=== PATIENT | male | born 1985 | race Caucasian/White ===

== ENCOUNTER 2018-06-07 14:15 | Observation (INO) | payer OTHER ==
[~2018-06-07] VITALS: Ht 162.6 cm; Wt 89.9 kg
[2018-06-07] VITALS (22 sets, daily range): BP systolic 109–180; BP diastolic 63–100; PULSE 14–118; RESP 4–19; Ht 162.6 cm; Wt 89.9 kg
[~2018-06-07 14:15] MED LIST: CEFAZOLIN 1 GM INJ ONE; DESFLURANE 15 MIN ONE; LIDOCAINE 2% (SDV) 5 ML INJ ONE; PROPOFOL 200 MG INJ ONE; ROCURONIUM 50 MG INJ ONE; SUCCINYLCHOLINE CHLORIDE 100 MG/5 ML SYG IV ONE
[2018-06-07] MEDS ORDERED: CEFAZOLIN 1 GM/50 ML (PMX) 50 ML IVPB SCH (15:00)
[2018-06-07] MEDS ORDERED: LACTATED RINGER'S 1,000 ML IV ONE (15:00)
--- NOTE | 2018-06-07 15:55 | PREAC ---
Date/Time of Note Date/Time of Note DATE: 06/07/18 TIME: 15:54 Anesthesia Eval and Record Evaluation Time Pre-Procedure Interview DATE: 06/07/18 TIME: 15:54 Age 33 Sex male NPO: 8 hrs Preoperative diagnosis R tibia Fracture Planned procedure R Tibia ORIF Past Medical History Past Medical History: None Surgery & Anesthesia Issues No known issue Meds Anticoagulation: No Beta Sourav within 24 hr: No Reason Beta Sourav not given: Pt. not on B-Sourav No Active Prescriptions or Reported Meds Meds reviewed: Yes Allergies Coded Allergies: No Known Allergy (Unverified , 06/07/18) Allergies Reviewed: Yes Labs/Studies Labs Reviewed: Reviewed by anesthesiologist test: Negative Studies: ECG Pre-procedure Exam Last vitals Vital Signs Date Temp Pulse Resp B/P (MAP) Pulse Ox O2 O2 Flow FiO2 Time Delivery Rate 06/07/18 98.8 93 18 128/79 100 Room Air 15:19 (95) Airway: Adequate mouth opening, Adequate thyromental dist Mallampati: Mallampati II Teeth: Normal Lung: Normal Heart: Normal ASA Physical Status ASA physical status: 2 Emergency: None Planned Anesthetic General/MAC: ETT Nerve block: Femoral (right), Sciatic Pre-operative Attestations Prior to commencing anesthesia and surgery, the patient was re-evaluated, there was verification of: *The patient's identity *The results of appropriate recent lab work and preoperative vital signs *The above evaluation not changing prior to induction *Anesthetic plan, risk benefits, alternative and complications discussed with patient/family; questions answered; patient/family understands, accepts and wishes to proceed. ERROL FALCON Jun 07, 2018 15:55
[2018-06-07] MEDS ORDERED: MEPERIDINE 25 MG INJ IV PRN (16:00)
[2018-06-07] MEDS ORDERED: ONDANSETRON 4 MG INJ IV PRN (16:00)
[2018-06-07] MEDS ORDERED: ALBUTEROL 0.083% (NEB) 2.5 MG/3 ML AMP HHN PRN (16:00)
[2018-06-07] MEDS ORDERED: HYDROmorphONE 1 MG/5 ML IV SYRINGE IV PRN (16:00)
[2018-06-07] MEDS ORDERED: METOCLOPRAMIDE 10 MG INJ IV PRN (16:00)
[2018-06-07] MEDS ORDERED: FENTAnyl 50 MCG/ML VIAL IV PRN ×2 (16:00)
[2018-06-07] MEDS ORDERED: DIPHENHYDRAMINE 50 MG INJ IV PRN (16:00)
[2018-06-07] MEDS ORDERED: MIDAZOLAM 1 MG/ML 2 ML INJ ONE (16:17)
[2018-06-07] MEDS ORDERED: FENTAnyl 50 MCG/ML VIAL ONE (16:17)
[2018-06-07] MEDS ORDERED: ROPIVACAINE 0.5 % 30 ML VIAL ONE (16:17)
[2018-06-07] MEDS ORDERED: POLYMYXIN/BACITRACIN 1L IRRIG ONE (16:44)
[2018-06-07] MEDS: HYDROmorphONE 1 MG/5 ML IV SYRINGE IV PRN ×4 (19:44→20:37)
[2018-06-07] MEDS: FENTAnyl 50 MCG/ML VIAL IV PRN ×2 (19:51→19:57)
[2018-06-07] MEDS: KETOROLAC 30 MG INJ IV PRN (20:48)
--- NOTE | 2018-06-07 20:52 | HPN ---
Date/Time of Note Date/Time of Note DATE: 06/07/18 TIME: 20:52 Interval H&P Admission Note Pt. seen H&P reviewed: No system changes RHINA FELDER MD Jun 07, 2018 20:52
--- NOTE | 2018-06-07 20:54 | SIPON ---
Date/Time of Note Date/Time of Note DATE: 06/07/18 TIME: 20:52 Operative Report Preoperative Diagnosis 1. Right Tibia Shaft Fracture 2. Right Non displaced posterior malleolus fracture 3. Right Proximal fibula fracture Postoperative Diagnosis Same Operation/Procedure Performed Right Tibia Intramedullary Nailing Surgeon Ghazala Richardson MD tax assistant [facility]– [place][Note 2] Anesthesia: general Estimated blood loss: 50 - 100 ml's Transfusion Required none Specimen none Grafts/Implants none Complications none GHAZALA RICHARDSON MD Jun 07, 2018 20:54
--- NOTE | 2018-06-07 21:19 | OPR ---
Date/Time of Note Date/Time of Note DATE: 06/07/18 TIME: 20:58 Operative Report Free Text/Dictation PREOP DIAGNOSIS: 1. Right spiral tibial shaft fracture 2. Right non-displaced posterior malleolus fracture 3. Right proximal fibula fracture POSTOP DIAGNOSIS: Same PRODCEDURE: Right tibia Intramedullary Nail, CPT 05777 SURGEON: Rhina Richardson MD MANUFACTURING LEADER: Anil Delgado ANESTHESIA: General endotracheal. ANESTHESIOLOGIST: Mau Ochoa MD ESTIMATED BLOOD LOSS: 50ml COMPLICATIONS: None. DISPOSITION: Stable to PACU. IMPLANT: Intramedullary nail fixation of the right tibia fracture with a Miguel T2 tibial nail, 10 x 300 with 10mm end cap, two proximal locking screw and two distal locking screws INDICATION FOR SURGERY: The patient is a 33-year-old male, who sustained a right tibia shaft fracture. He was initially seen at [facility] and discharged home. The risks of surgery were discussed in detail including, but not limited to infection, bleeding, injuries to nerves, or vital structures, nonunion or malunion, need for reoperation, knee pain, need for hardware or screw removal, stiffness of the knee, compartment syndrome, and the risk of anesthesia. The patient understood these risks and wished to proceed. PROCEDURE DETAIL: The patient was met in the preoperative holding area and operative site was marked. The patient was brought to the operating room. After general anesthesia, the right leg was prepped and draped in usual fashion. A time out was taken to confirm the correct operative site, and to confirm that preoperative antibiotics were given. A midline incision was made in the center of the knee and was carried down sharply to the retinacular tissue. The starting guidewire was used to localize the correct starting point, which is on the medial aspect of the lateral tibial eminence. This was advanced and confirmed on the AP and lateral fluoroscopic images. The opening reamer was then used and the ball-tip guidewire was passed. The reduction was obtained over a large radiolucent triangle. After passing the guidewire and achieving appropriate reduction, the flexible reamers were then sequentially passed, starting at 8 mm reamer up to 11.5 mm reamer. At this point, a 10 x 300 mm was passed without difficulty. The guide was used to the proximal locking screw and the appropriate pitka's point technique was used to the distal locking screws. The final images were taken with fluoroscopy and a 10-mm end-cap was placed. The wounds were then irrigated and closed with 2-0 Vicryl followed by carlos to the distal screws and 0 Vicryl followed 2-0 Vicryl and carlos to the proximal incision. The patient was placed in a well padded soft dressing. The patient was awakened and taken to recovery in good condition. PLAN: The patient will be weightbearing as tolerated on the right lower extremity. He will be admitted for 23 hour observation. He will receive post operative antibiotics and pain medications. Upon discharge, he will follow up in my office within 2 weeks post-operatively. RHINA RICHARDSON MD Jun 07, 2018 21:19
[2018-06-07] MEDS: SOD CHLORIDE 0.9% 1,000 ML IV SCH (21:44)
[2018-06-08] MEDS: CEFAZOLIN 1 GM/50 ML (PMX) 50 ML IVPB SCH ×2 (01:00→09:49)
[2018-06-08] MEDS: HYDROCODONE/APAP (5/325) TAB PO PRN ×2 (02:45→14:24)
[2018-06-08] MEDS: KETOROLAC 30 MG INJ IV PRN ×2 (02:45→10:40)
[2018-06-08 03:37] VITALS: BP 123/61; PULSE 105; RESP 16
[2018-06-08] MEDS: SOD CHLORIDE 0.9% 1,000 ML IV SCH ×2 (05:41→06:57)
[2018-06-08] MEDS ORDERED: HYDROCODONE/APAP (5/325) TAB PO STA (07:03)
--- NOTE | 2018-06-08 07:27 | PAC ---
Date/Time of Note Date/Time of Note DATE: 06/08/18 TIME: 07:26 Post-Anesthesia Notes Post-Anesthesia Note Last documented vital signs Vital Signs Date Temp Pulse Resp B/P (MAP) Pulse Ox O2 O2 Flow FiO2 Time Delivery Rate 06/08/18 98.1 105 16 123/61 99 Room Air 03:37 (81) 06/07/18 2.0 23:50 Activity: WNL Respiratory function: WNL Cardiovascular function: WNL Mental status: Baseline Pain reasonably controlled: Yes Hydration appropriate: Yes Nausea/Vomiting absent: Yes ERROL FALCON Jun 08, 2018 07:27
[2018-06-08 07:59] VITALS: BP 124/73; PULSE 84; RESP 18
--- NOTE | 2018-06-08 10:07 | PDOCDIS ---
Discharge Instructions DIAGNOSIS Discharge Diagnosis Status post ORIF tibia fracture on the right side CONDITION [id number] Patient Condition: [id number] Good HOME CARE INSTRUCTIONS: [id number] Diet Instructions: [id number] Regular ACTIVITY: [id number] Activity Restrictions: [id number] Slowly Increase Activity Rest between Activity Avoid heavy lifting No Sexual Activity Do not Drive Do not operate Machinery Do not operate Power Tool Avoid Heavy Housework Keep Limb Elevated (While at rest. Ice modalities okay.) Weight Bearing (Weight-bear as tolerated with crutches at all times.) [id number] Bathing Restrictions: [id number] Shower (Keep surgical area clean and dry. Okay to shower.) FOLLOW UP/APPOINTMENTS Follow-up Plan Follow-up in 2 weeks at outpatient office for repeat evaluation. RICHA PARRY PA-C Jun 08, 2018 10:07
[2018-06-08 14:37] VITALS: BP 116/68; PULSE 85; RESP 18
--- NOTE | 2018-06-09 10:32 | DS ---
Date/Time of Note Date/Time of Note DATE: 06/09/18 TIME: 10:31 Discharge Summary Admission/Discharge Info Admit Date/Time Jun 07, 2018 at 20:27 Discharge Date/Time Jun 08, 2018 at 17:00 Discharge Diagnosis Status post ORIF tibia fracture on the right side Patient Condition: Good Hospital Course On the day of admission, the patient underwent ORIF right tibia Intraoperative complications: None Postoperative complications: None The patient was given prophylactic antibiotics and anticoagulants. On the day of surgery and first postoperative day patient was started on gait training and was taught usual restrictions following ORIF to the right tibia On postoperative day 1 dressing was clean dry and intact. No complications were observed. On the day of discharge, the wound was clean and healing well; there was no sign of infection. Wound care instructions were discussed with the patient. Discharge Temperature:98.5 degrees The patient was discharged home. Arrangements were made for visiting nurses and home health/physical therapy. The patient will be seen in office at scheduled postoperative evaluation date given on their preoperative exam. Should patient complain of any problems prior to scheduled postoperative evaluation date, they may call into outpatient clinic to determine if they need to be scheduled at sooner appointment to be seen imm ediately if needed. Discharge medications: As per medication reconciliation form Diet: Same as preadmission diet. This is Richa Peters PA-C dictating discharge summary for Dr. Mily Reina. Home Meds No Active Prescriptions or Reported Meds Follow-up Plan Follow-up in 2 weeks at outpatient office for repeat evaluation. Primary Care Provider RICHA Carroll PA-C Jun 09, 2018 10:32
== END 2018-06-08 17:00 | disposition home or self-care (01) ==
LOC: SDS 14:15 → MS1 20:27
PROVIDERS: ADMIT Orthopaedic Surgery Adult Reconstructive Orthopaedic Surgery; ATTEND Orthopaedic Surgery Adult Reconstructive Orthopaedic Surgery
DX: S82.241A Displaced spiral fracture of shaft of right tibia, initial encounter for closed fracture (principal); S82.831A Other fracture of upper and lower end of right fibula, initial encounter for closed fracture; S82.391A Other fracture of lower end of right tibia, initial encounter for closed fracture; X58.XXXA Exposure to other specified factors, initial encounter
CPT/HCPCS: 27759; 73590; 97116; 97161; 97530; C1713; G0378; J0690; J1170; J1885; J2175; J2250; J2405; J2795; J3010; J7030